=== PATIENT | female | born 1960 | race Two or more races ===

== ENCOUNTER 2019-04-10 16:58 | Emergency (ER) | payer OTHER ==
[~2019-04-10] VITALS: Ht 139.7 cm; Wt 73.9 kg
[2019-04-10 17:20] VITALS: BP 155/93
--- NOTE | 2019-04-10 17:28 | NUR ---
PT C/O RIGHT KNEE PAIN X1 MONTH, STATES SHE HAD WART ON LEFT FOOT AND MAY HAVE "BABIED" HER OTHER LEG, DENIES TRAUMA. DENIES N/V/D; SKIN IS PINK/WARM/DRY; AAOX4 WITH EVEN AND STEADY GAIT; PT DENIES ANY FEVER, CP, SOB, OR COUGH AT THIS TIME; PATIENT STATES PAIN OF 10/10 AT THIS TIME; VSS; PATIENT POSITIONED FOR COMFORT; HOB ELEVATED; BEDRAILS UP X1; BED DOWN. ER MD MADE AWARE OF PT STATUS.
[2019-04-10] MEDS ORDERED: LISI10TA11 PO (17:40)
[2019-04-10] MEDS ORDERED: ATOR20TA PO (17:40)
[2019-04-10] MEDS ORDERED: ASPI-1718 PO (17:40)
[2019-04-10] MEDS ORDERED: ALBU0.0912 INH (17:40)
[2019-04-10] MEDS ORDERED: KETOROLAC 60 MG/2 ML VIAL IM ONE (17:40)
[2019-04-10] MEDS ORDERED: METF500T PO (17:40)
[2019-04-10] MEDS ORDERED: CANA100T PO (17:40)
[2019-04-10] MEDS ORDERED: [UNRECOGNIZED DRUG - CODE] PO (17:40)
[2019-04-10 18:15] VITALS: BP 135/79
--- NOTE | 2019-04-10 18:15 | NUR ---
Patient discharged with v/s stable. Written and verbal after care instructions given and explained. Patient alert, oriented and verbalized understanding of instructions. Ambulatory with steady gait. All questions addressed prior to discharge. ID band removed. Patient advised to follow up with PMD. Rx of Voltaren 1% Topical Gel given. Patient educated on indication of medication including possible reaction and side effects. Opportunity to ask questions provided and answered.
== END 2019-04-10 18:15 | disposition home or self-care (01) ==
LOC: MED 16:58
DX: M25.561 Pain in right knee (principal); E11.9 Type 2 diabetes mellitus without complications; I10 Essential (primary) hypertension; J45.909 Unspecified asthma, uncomplicated; Z98.890 Other specified postprocedural states; Z79.899 Other long term (current) drug therapy; Z79.82 Long term (current) use of aspirin
CPT/HCPCS: 96372; 99283; J1885

== ENCOUNTER 2024-05-27 18:04 | Emergency (ER) | payer MEDICARE, MEDICAID ==
[~2024-05-27] VITALS: Ht 149.9 cm; Wt 68.5 kg
[~2024-05-27 18:04] MED LIST: ALBU0.0912 INH; ASPI-1822 PO; ATOR20TA PO; CANA100T PO; LISI-951 PO; METF-346 PO; [UNRECOGNIZED DRUG - CODE] PO
[2024-05-27 18:20] VITALS: BP 151/84; PULSE 94; RESP 16; TEMP 97.6; O2SAT 98
--- NOTE | 2024-05-27 18:29 | NUR ---
Patient being evaluated by physician at bedside.
--- NOTE | 2024-05-27 18:29 | NUR ---
to bed 6.
--- NOTE | 2024-05-27 19:05 | NUR ---
lab at bedside
[2024-05-27] MEDS: KETOROLAC 30 MG/ML VIAL IM ONE (19:10)
[2024-05-27 19:15] VITALS: BP 151/84; PULSE 94; RESP 16; TEMP 97.6
[2024-05-27 19:19] LABS: BASOPHILS # (AUTO) 0.1 K/uL (0.00-0.22); BASOPHILS % (AUTO) 0.8 % (0.0-2.0); EOSINOPHILS # (AUTO) 0.5 K/uL (0-0.4); EOSINOPHILS % (AUTO) 4.4 % (0.0-4.0); HEMATOCRIT 37.2 % (36-48); LYMPHOCYTES # (AUTO) 2.8 K/uL (2.5-16.5); LYMPHOCYTES % (AUTO) 26.6 % (20.5-51.1); MEAN CORPUSCULAR HEMOGLOBIN 26 pg (27-31); MEAN CORPUSCULAR HGB CONC 32 g/dL (33-37); MEAN CORPUSCULAR VOLUME 80.5 fL (80-94); MONOCYTES # (AUTO) 0.5 K/uL (0.8-1.0); MONOCYTES % (AUTO) 5.2 % (1.7-9.3); NEUTROPHILS # (AUTO) 6.5 K/uL (1.8-7.7); PLATELET COUNT (AUTO) 312 K/uL (140-450); RED BLOOD CELL COUNT(AUTO) 4.63 MIL/uL (4.20-5.40); RED CELL DISTRIBUTION WIDTH 15.6 % (11.6-13.7); WHITE BLOOD COUNT (AUTO) 10.4 K/uL (4.8-10.8)
[2024-05-27 19:20] VITALS: O2SAT 98
[2024-05-27 19:26] LABS: ANION GAP 15.5 (8-16); CALCIUM 9.2 mg/dL (8.5-10.1); CARBON DIOXIDE 24.6 mmol/L (21-32); CREATININE 0.9 mg/dL (0.6-1.3); POTASSIUM 4.1 mmol/L (3.5-5.1)
[2024-05-27 19:33] LABS: ALBUMIN 3.3 g/dL (3.4-5.0); BILIRUBIN,DIRECT 0.1 mg/dL (0.0-0.3); TOTAL BILIRUBIN 0.3 mg/dL (0.0-1.0); TOTAL PROTEIN, SERUM 7.2 g/dL (6.4-8.2)
--- NOTE | 2024-05-27 19:35 | NUR ---
Report given to CAROLA Gagnon for transfer of care.
[2024-05-27 20:17] LABS: APPEARANCE,URINE CLEAR (CLEAR); BILIRUBIN,URINE NEGATIVE (NEGATIVE); BLOOD, URINE NEGATIVE (NEGATIVE); COLOR,URINE YELLOW (YELLOW); LEUKOCYTE ESTERASE ,URINE 1+ (NEGATIVE); NITRITE, URINE NEGATIVE (NEGATIVE); PROTEIN,URINE NEGATIVE (NEGATIVE); UGLUCOSE NEGATIVE (NEGATIVE); UROBILINOGEN,URINE 0.2 EU/dL (0.2 - 1)
[2024-05-27 20:30] LABS: RBC,URINE 0-5 /HPF (0-5)
[2024-05-27 20:31] LABS: BACTERIA,URINE FEW /HPF (None Seen); MUCUS,URINE 1+ /LPF (None Seen); SQUAMOUS EPITHELIAL CELL,UR 20-50 /LPF (0-3 (FEW)); TRICHOMONAS,URINE None Seen /HPF (None Seen); WHITE BLOOD CELL CASTS,URINE None Seen /LPF (None Seen); YEAST,URINE None Seen /HPF (None Seen)
[2024-05-27] MEDS ORDERED: CEPH-588 PO (20:45)
--- NOTE | 2024-05-27 20:49 | NUR ---
Patient discharged with v/s stable. Written and verbal after care instructions given and explained. Patient verbalized understanding. Ambulatory with steady gait. All questions addressed prior to discharge. Advised to follow up with PMD.
[2024-05-27] MEDS: cephALEXin 500 MG CAP PO ONE (20:52)
== END 2024-05-27 20:45 | disposition home or self-care (01) ==
LOC: MED 18:04
DX: N39.0 Urinary tract infection, site not specified (principal); R51.9 Headache, unspecified; J45.909 Unspecified asthma, uncomplicated; E11.9 Type 2 diabetes mellitus without complications; I10 Essential (primary) hypertension; Z79.899 Other long term (current) drug therapy; Z79.82 Long term (current) use of aspirin
CPT/HCPCS: 36415; 74176; 80048; 80076; 81001; 82948; 83690; 85025; 87086; 96372; 99285; J1885